=== PATIENT | female | born 1965 | race Caucasian/White ===

== ENCOUNTER → 2020-11-30 | Outpatient (CLI) | payer BC | END | disposition home or self-care (01) | LOC: LABWHC1 16:40 | PROVIDERS: ATTEND Emergency Medicine | DX: Z20.822 Contact with and (suspected) exposure to COVID-19 (principal) | CPT/HCPCS: U0003; C9803; U0005 ==

== ENCOUNTER → 2021-06-02 | Outpatient (CLI) | payer BC ==
--- NOTE | 2021-06-02 08:39 | XR ---
EXAMINATION TYPE: XR lumbar spine 3 views DATE OF EXAM: 06/02/2021 Comparison: 10/18/2010 Clinical History: 56-year-old female M54.16 lumbar radiculopathy Findings: 5 lumbar type vertebral bodies. Cholecystectomy clips. Advanced hypertrophic facet arthropathy lower lumbar spine, progressed from 2010. Mild multilevel endplate spondylosis also show slight interval pr ogression. Vertebral body heights are preserved and alignment is maintained. Some degenerative thinni ng of the interspinous ligaments in the lower lumbar spine suggests early Baastrup's disease. Impression: 1. Progressive hypertrophic facet arthropathy especially in the lower lumbar spine. 2. Mild multilevel degenerative disc disease persists, also slightly progressed from 2010. 3. No vertebral compression collapse or malalignment.
== END | disposition home or self-care (01) ==
LOC: RADXRMAIN 07:50
PROVIDERS: ATTEND Family Medicine
DX: M47.26 Other spondylosis with radiculopathy, lumbar region (principal); M51.36 Other intervertebral disc degeneration, lumbar region
CPT/HCPCS: 72100

== ENCOUNTER → 2022-01-02 | Outpatient (CLI) | payer BC ==
--- NOTE | 2022-01-03 11:45 | MM ---
Reason for exam: screening (asymptomatic). Last mammogram was performed 6 years and 9 months ago. History: Patient is postmenopausal and is nulliparous. Family history of breast cancer in sister at age 40. Excisional biopsy of the right breast. Physical Findings: A clinical breast exam by your physician is recommended on an annual basis and results should be correlated with mammographic findings. MG Screening Mammo w CAD Bilateral CC and MLO view(s) were taken. Prior study comparison: April 16, 2015, bilateral MG screening mammo w CAD. August 08, 2012, bilateral digital screening mammo w/CAD. The breast tissue is heterogeneously dense. This may lower the sensitivity of mammography. There is chronic nodularity bilaterally. There is no dominant lesion. No significant changes when compared with prior studies. ASSESSMENT: Benign, BI-RAD 2 RECOMMENDATION: Routine screening mammogram of both breasts in 1 year.
== END | disposition home or self-care (01) ==
LOC: RADMAMWWP 07:41
PROVIDERS: ATTEND Family Medicine
DX: Z12.31 Encounter for screening mammogram for malignant neoplasm of breast (principal)
CPT/HCPCS: 77067

== ENCOUNTER → 2022-10-05 | Outpatient (CLI) | payer BC ==
--- NOTE | 2022-10-05 08:45 | CTL ---
EXAMINATION TYPE: CT Low Dose Lung DATE OF EXAM ORDERED: 10/05/2022 HISTORY: Long-term tobacco use. Lung cancer screening CT DLP: 53.[address] CTDI: 1.5 mGy Automated exposure control for dose reduction was used. SCREENING VISIT: Baseline COMPARISON: None TECHNIQUE: Low dose computed tomography scan was performed through the chest at 1 mm thick sections a nd reconstructed images in multiple planes at various thick sections including MIP imaging. CT DIAGNOSTIC QUALITY: Satisfactory FINDINGS: LUNG NODULES: Present, detailed below: Scattered tiny nodules are identified bilaterally. For reference there is 3 to 4 mm posterior left up per lobe nodule axial image 84. Reference is a 3 mm anterior right mid lung nodule axial image 159. N o significant greater than 5 mm pulmonary nodules. LUNGS: COPD: Severity: None Fibrosis: Severity: None Lymph nodes: None Other findings: None RIGHT PLEURAL SPACE: Effusion: None Calcification: None Thickening: None Pneumothorax: None LEFT PLEURAL SPACE: Effusion: None Calcification: None Thickening: None Pneumothorax: None HEART: Heart Size: Normal Coronary Calcification: Moderate to severe Pericardial Effusion: None OTHER FINDINGS: Upper abdomen: Cholecystectomy clip noted on the last axial images. Bony thorax: None Supraclavicular region: None Other: Asymmetric more prominent left-sided fibroglandular tissue correlates with most recent mammogr am January 02. IMPRESSION: Scattered small nodules. No significant greater than [address] LUNG RAD AND CT CHEST RECOMMENDATION: Lung-Rad 2 Benign Appearance or Behavior: Continue annual sc reening with LDCT in 12 months. S Modifier (other clinically significant findings): S Moderate to severe coronary artery calcification should be correlated with additional cardiac risk fa ctors.
== END | disposition home or self-care (01) ==
LOC: RADCTMAIN 07:53
PROVIDERS: ATTEND Family Medicine
DX: Z12.2 Encounter for screening for malignant neoplasm of respiratory organs (principal); R91.8 Other nonspecific abnormal finding of lung field; Z87.891 Personal history of nicotine dependence
CPT/HCPCS: 71271

== ENCOUNTER → 2024-01-07 | Outpatient (CLI) | payer BC ==
--- NOTE | 2024-01-08 18:49 | MM ---
Reason for Exam: Screening (asymptomatic). Last mammogram was performed 2 year(s) and 0 month(s) ago. Patient History: Menarche at age 9. Patient has no children. Postmenopausal. Excisional Biopsy on the Right side. Sister had breast cancer, age 40. Risk Values: Perla 5 year model risk: 3.5%. NCI Lifetime model risk: 18.1%. Prior Study Comparison: 08/08/2012 Bilateral Screening Mammogram, [facility]. 04/16/2015 Bilateral Screening Mammogram, [facility]. 01/02/2022 Bilateral Screening Mammogram, [facility]. Tissue Density: The breasts are heterogeneously dense, which may obscure small masses. Findings: Analyzed By CAD. Unchanged bilateral areas of asymmetric density. There is no suspicious group of microcalcifications or new suspicious mass in either breast. Overall Assessment: Benign, BI-RAD 2 Management: Screening Mammogram of both breasts in 1 year. See note below in regards to patient's increased 5 year Perla score. Patient should continue monthly self-breast exams. A clinical breast exam by your physician is recommended on an annual basis. This exam should not preclude additional follow-up of suspicious palpable abnormalities. Note on Perla scores and lifetime risk: 1. A Perla score greater than 3% is considered moderate risk. If this is the case, consider specialist referral to assess eligibility for a risk reducing agent. 2. If overall lifetime risk for the development of breast cancer is 20% or higher, the patient may qualify for future screening with alternating mammogram and breast MRI. Electronically signed and approved by: Nancy Arceo M.D. Radiologist
== END | disposition home or self-care (01) ==
LOC: RADMAMWWP 07:36
PROVIDERS: ATTEND Family Medicine
DX: Z12.31 Encounter for screening mammogram for malignant neoplasm of breast (principal); Z78.0 Asymptomatic menopausal state; Z80.3 Family history of malignant neoplasm of breast
CPT/HCPCS: 77063; 77067